=== PATIENT | male | born 1995 | race Two or more races ===

== ENCOUNTER 2018-02-17 19:05 | Emergency (ER) | payer SELFPAY ==
[2018-02-17] MEDS ORDERED: ALBUTEROL SULFATE 0.083% NEB 2.5 MG/3 ML AMPUL NEB ONE (20:06)
[2018-02-17] MEDS ORDERED: PREDNISONE 20 MG TABLET PO ONE (20:06)
--- NOTE | 2018-02-17 20:12 | ER Document Report ---
ED Respiratory Problem - General Chief Complaint: Cold Symptoms Stated Complaint: cough Time Seen by Provider: 02/17/18 19:57 Notes: Patient is a 23-year-old male with a history of asthma presenting to the ED today complaining of chest congestion, sore throat, coughing, and chest pains with breathing 1 week. Patient is presently out of his asthma medications. Patient is a smoker. No fever. TRAVEL OUTSIDE OF THE [place] IN LAST 30 DAYS: No - HPI Patient complains to provider of: Asthma, Cough Onset: Last week Initiating Event: URI Quality of pain: Achy Context: Hx asthma Short of Breath: Mild Chest pain/discomfort: Center, Worse with deep breaths Cough: Productive Sputum amount: Scant Sputum color: Green Sputum consistency: Mucoid Associated symptoms: Chest pain/discomfort, Congestion, Cough, Sinus pain/ pressure, Short of breath, Sore Throat - Related Data Allergies/Adverse Reactions: acetaminophen [From Tylenol] Allergy (Verified 02/17/18 19:06) Past Medical History - General Information source: Patient - Social History Smoking Status: Current Every Day Smoker Frequency of alcohol use: None Drug Abuse: None Lives with: Family Family History: Reviewed & Not Pertinent Patient has suicidal ideation: No Patient has homicidal ideation: No Pulmonary Medical History: Reports: Hx Asthma Renal/ Medical History: Denies: Hx Peritoneal Dialysis Skin Medical History: Reports Hx Eczema Psychiatric Medical History: Reports: Hx Anxiety, Hx Depression - Immunizations Immunizations up to date: Yes Hx Diphtheria, Pertussis, Tetanus Vaccination: Yes - last tetanus a few months ago Review of Systems - Review of Systems Constitutional: No symptoms reported EENT: No symptoms reported Cardiovascular: No symptoms reported Respiratory: See HPI Gastrointestinal: No symptoms reported Genitourinary: No symptoms reported Male Genitourinary: No symptoms reported Musculoskeletal: No symptoms reported Skin: No symptoms reported Hematologic/Lymphatic: No symptoms reported Neurological/Psychological: No symptoms reported Physical Exam - Vital signs Interpretation: Normal - General General appearance: Appears well, Alert In distress: None - HEENT Head: Normocephalic, Atraumatic Eyes: Normal Pupils: PERRL - Respiratory Respiratory status: No respiratory distress Chest status: Nontender Breath sounds: Nonproductive cough, Wheezing Chest palpation: Normal - Cardiovascular Rhythm: Regular Heart sounds: Normal auscultation Murmur: No - Abdominal Inspection: Normal Distension: No distension Bowel sounds: Normal Tenderness: Nontender Organomegaly: No organomegaly - Back Back: Normal, Nontender - Extremities General upper extremity: Normal inspection, Nontender, Normal color, Normal ROM , Normal temperature General lower extremity: Normal inspection, Nontender, Normal color, Normal ROM , Normal temperature, Normal weight bearing. No: Deyvi's sign - Neurological Neuro grossly intact: Yes Cognition: Normal Orientation: AAOx4 [place] Coma Scale Eye Opening: Spontaneous [place] Coma Scale Verbal: Oriented [place] Coma Scale Motor: Obeys Commands [place] Coma Scale Total: 15 Speech: Normal Motor strength normal: LUE, RUE, LLE, RLE Sensory: Normal - Psychological Associated symptoms: Normal affect, Normal mood - Skin Skin Temperature: Warm Skin Moisture: Dry Skin Color: Normal Course - Re-evaluation Re-evalutation: 02/17/18 20:36 History and physical are consistent with an upper respiratory infection with an asthma exacerbation. Chest x-ray is negative. Patient is improved after nebulizers and steroids. No signs of respiratory distress or sepsis. Home care , primary care follow-up and ED return precautions discussed with patient. Patient is agreeable to plan and stable for discharge Discharge - Discharge Clinical Impression: Acute left otitis media URI (upper respiratory infection) Qualifiers: URI type: unspecified viral URI Qualified Code(s): J06.9 - Acute upper respiratory infection, unspecified Asthma exacerbation Qualifiers: Asthma severity: moderate Asthma persistence: persistent Qualified Code(s): J45.41 - Moderate persistent asthma with (acute) exacerbation Condition: Stable Instructions: Upper Respiratory Illness ([facility]), Asthma ([facility]), Steroid Medication , Inhaled Bronchodilators ([facility]), Otitis Media ([facility]), Antibiotic Therapy ([facility]) Additional Instructions: Please take your medications as prescribed Use inhaler as needed you may take an OTC decongestant in addition to prescribed medications Follow-up with your primary care if symptoms persist or worsen Prescriptions: Benzonatate [Tessalon Perles 100 mg Capsule] 200 mg PO Q8HP PRN #40 capsule PRN Reason: Albuterol Sulfate [Proair HFA Inhalation Aerosol 8.5 gm MDI] 2 puff IH Q4H PRN # 1 mdi PRN Reason: Amoxicillin 500 mg PO TID #21 tablet Prednisone 20 mg PO BID #16 tablet
--- NOTE | 2018-02-17 20:47 | RADIOLOGY REPORT (SQ) ---
EXAM DESCRIPTION: CHEST 2 VIEWS COMPLETED DATE/TIME: 02/17/2018 8:31 pm REASON FOR STUDY: cough COMPARISON: 11/27/2015 EXAM PARAMETERS: NUMBER OF VIEWS: two views TECHNIQUE: Digital Frontal and Lateral radiographic views of the chest acquired. RADIATION DOSE: NA LIMITATIONS: none FINDINGS: LUNGS AND PLEURA: No opacities, masses or pneumothorax. No pleural effusion. MEDIASTINUM AND HILAR STRUCTURES: No masses or contour abnormalities. HEART AND VASCULAR STRUCTURES: Heart normal size. No evidence for failure. BONES: No acute findings. HARDWARE: None in the chest. OTHER: No other significant finding. IMPRESSION: NO ACUTE RADIOGRAPHIC FINDING IN THE CHEST. TECHNICAL DOCUMENTATION: JOB ID: [id number] [employer]- All Rights Reserved Reading location - IP/workstation name: [email or web address]
[2018-02-17] MEDS ORDERED: IPRATROPIUM/ALBUTEROL 0.5-2.5 MG/3 ML AMPUL NEB ONE (20:48)
[2018-02-17 21:24] VITALS: BP 138/77
== END 2018-02-17 21:24 | disposition home or self-care (01) ==
LOC: ER 19:05
DX: H66.92 Otitis media, unspecified, left ear (principal); J06.9 Acute upper respiratory infection, unspecified; J45.41 Moderate persistent asthma with (acute) exacerbation
CPT/HCPCS: 94640 ×2; 99283; 71046; J7512; J7620

== ENCOUNTER 2018-03-19 09:07 | Emergency (ER) | payer OTHER ==
[2018-03-19] MEDS ORDERED: FENTANYL CITRATE INJ/PF 100 MCG/2 ML AMPUL IM ONE (09:25)
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
[2018-03-19 10:02] LABS: ABSOLUTE BASOPHILS # (AUTO) 0.1 10^3/uL (0.0-0.2); ABSOLUTE EOSINOPHILS # (AUTO) 0.3 10^3/uL (0.0-0.6); ABSOLUTE LYMPHOCYTES (AUTO) 2.1 10^3/uL (0.5-4.7); ABSOLUTE MONOCYTES (AUTO) 0.9 10^3/uL (0.1-1.4); BASOPHILS % (AUTO) 0.7 % (0-2); EOSINOPHILS % (AUTO) 3.6 % (0-6); HEMATOCRIT 47.9 % (37.9-51.0); HEMOGLOBIN 16.7 g/dL (13.5-17.0); MEAN CORPUSCULAR HEMOGLOBIN 30.8 pg (27.0-33.4); MEAN CORPUSCULAR VOLUME 88 fl (80-97); MONOCYTES % (AUTO) 9.7 % (3-13); PLATELET COUNT 270 10^3/uL (150-450); RED BLOOD COUNT 5.43 10^6/uL (4.35-5.55); TOTAL CELLS COUNTED % (AUTO) 100 %; WHITE BLOOD COUNT 9.4 10^3/uL (4.0-10.5)
[2018-03-19 10:25] LABS: ALANINE AMINOTRANSFERASE 148 U/L (21-72); ALBUMIN 4.5 g/dL (3.5-5.0); ALKALINE PHOSPHATASE 83 U/L (38-126); ANION GAP 14 (5-19); ASPARTATE AMINO TRANSFERASE 116 U/L (17-59); BILIRUBIN,DIRECT 0.4 mg/dL (0.0-0.4); BILIRUBIN,TOTAL 1.2 mg/dL (0.2-1.3); BLOOD UREA NITROGEN 14 mg/dL (7-20); CALCIUM 10.2 mg/dL (8.4-10.2); CARBON DIOXIDE 29 mmol/L (22-30); CHLORIDE 101 mmol/L (98-107); GLUCOSE 73 mg/dL (75-110); LIPASE 22.9 U/L (23-300); POTASSIUM 4.2 mmol/L (3.6-5.0); SODIUM 143.8 mmol/L (137-145)
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
[2018-03-19 12:32] VITALS: BP 138/75
[2018-03-19 13:03] LABS: URINE AMPHETAMINES SCREEN NEGATIVE; URINE BARBITURATES SCREEN NEGATIVE; URINE BENZODIAZEPINES SCREEN UNCONFIRMED POSITIVE; URINE COCAINE SCREEN NEGATIVE; URINE MARIJUANA (THC) SCREEN NEGATIVE; URINE METHADONE SCREEN NEGATIVE; URINE PHENCYCLIDINE SCREEN NEGATIVE
== END 2018-03-19 12:35 | disposition home or self-care (01) ==
LOC: ER 09:07
DX: M54.9 Dorsalgia, unspecified (principal); M54.2 Cervicalgia; M25.511 Pain in right shoulder; M79.601 Pain in right arm; M79.641 Pain in right hand; M25.551 Pain in right hip; R07.89 Other chest pain; V03.10XA Pedestrian on foot injured in collision with car, pick-up truck or van in traffic accident, initial encounter; Y92.410 Unspecified street and highway as the place of occurrence of the external cause; F17.210 Nicotine dependence, cigarettes, uncomplicated; Z88.6 Allergy status to analgesic agent
CPT/HCPCS: 99284; 96372; 36415; 83690; 85025; 80053; 80307; 73090; 73120; 73502; 73060; 72110; 71101; 73030; 72070; 70450; 70486; 71260; 72125; 74177; L0120; J3010

== ENCOUNTER 2018-06-17 09:36 | Emergency (ER) | payer OTHER ==
[2018-06-17 09:44] VITALS: BP 137/75
[2018-06-17] MEDS ORDERED: IPRATROPIUM/ALBUTEROL 0.5-2.5 MG/3 ML AMPUL NEB ONE (09:52)
[2018-06-17] MEDS ORDERED: PREDNISONE 20 MG TABLET PO ONE (09:54)
--- NOTE | 2018-06-17 09:59 | ER Document Report ---
ED Respiratory Problem - General Chief Complaint: Breathing Difficulty Stated Complaint: DIFFICULTY BREATHING, SORE THROAT Time Seen by Provider: 06/17/18 09:52 Mode of Arrival: Ambulatory Information source: Patient Notes: Chief complaint: Cough History of complain:( obtained from----patient) 23 years old male presents today with cough and wheezing for the last 2 days with runny nose sore throat. Having chest tightness and pain when wheezing. And coughing also. Denies any fever chills. Denies any headache. Denies any nausea vomiting. He smokes about 10 cigarettes a day. Onset: As above Duration: 2 days Severity: Mild to moderate Quality: Not applicable Context: Smoking Exacerbating factor and relieving factors: Exertion last year to restart show no problem REVIEW OF SYSTEMS: CONSTITUTIONAL : Denies fever, chills, or sweats. Denies recent illness. EENT: Denies eye, ear, throat, or mouth pain or symptoms. Denies nasal or sinus congestion or discharge. Denies throat, tongue, or mouth swelling or difficulty swallowing. CARDIOVASCULAR: Denies chest pain. Denies palpitations or racing or irregular heart beat. Denies ankle edema. RESPIRATORY: Denies cough, cold, or chest congestion. Denies shortness of breath, difficulty breathing, or wheezing. GASTROINTESTINAL: Denies distention. Denies nausea, vomiting, or diarrhea. Denies blood in vomitus, stools, or per rectum. Denies black, tarry stools. Denies constipation. GENITOURINARY: Denies difficulty urinating, painful urination, burning, frequency, blood in urine, or discharge. FEMALE GENITOURINARY: Denies vaginal bleeding, heavy or abnormal periods, irregular periods. Denies vaginal discharge or odor. MUSCULOSKELETAL: Denies back or neck pain or stiffness. Denies joint pain or swelling. SKIN: Denies rash, lesions or sores. HEMATOLOGIC : Denies easy bruising or bleeding. LYMPHATIC: Denies swollen, enlarged glands. NEUROLOGICAL: Denies confusion or altered mental status. Denies passing out or loss of consciousness. Denies dizziness or lightheadedness. Denies headache. Denies weakness or paralysis or loss of use of either side. Denies problems with gait or speech. Denies sensory loss, numbness, or tingling. Denies seizures. PSYCHIATRIC: Denies anxiety or stress. Denies depression, suicidal ideation, or homicidal ideation. ALL OTHER SYSTEMS REVIEWED AND NEGATIVE. PHYSICAL EXAMINATION: GENERAL: Well-appearing, well-nourished and in no acute distress. HEAD: Atraumatic, normocephalic. EYES: Pupils equal round and reactive to light, extraocular movements intact, conjunctiva are normal. ENT: Nares patent, oropharynx erythematous without exudates. Moist mucous membranes. NECK: Normal range of motion, supple without lymphadenopathy LUNGS: Breath sounds clear to auscultation bilaterally and equal. Bilateral expiratory wheezing moderate HEART: Regular rate and rhythm without murmurs ABDOMEN: Soft, nontender, nondistended abdomen. No guarding, no rebound. No masses appreciated. Examination of genitals-deferred Musculoskeletal: Normal range of motion, no pitting or edema. No cyanosis. NEUROLOGICAL: Cranial nerves grossly intact. Normal speech, normal gait. Normal sensory, motor exams PSYCH: Normal mood, normal affect. SKIN: Warm, Dry, normal turgor, no rashes or lesions noted. Dictation was performed using [employer] voice recognition software TRAVEL OUTSIDE OF THE [place] IN LAST 30 DAYS: No - HPI Notes: Dictated - Related Data Allergies/Adverse Reactions: acetaminophen [From Tylenol] Allergy (Verified 06/17/18 09:39) Past Medical History - Social History Smoking Status: Current Every Day Smoker Cigarette use (# per day): Yes - 10 Chew tobacco use (# tins/day): No Smoking Education Provided: Yes Frequency of alcohol use: Rare Drug Abuse: None Lives with: Family Family History: Reviewed & Not Pertinent Pulmonary Medical History: Reports: Hx Asthma Renal/ Medical History: Denies: Hx Peritoneal Dialysis Skin Medical History: Reports Hx Eczema Psychiatric Medical History: Reports: Hx Anxiety, Hx Depression - Immunizations Immunizations up to date: Yes Hx Diphtheria, Pertussis, Tetanus Vaccination: Yes - last tetanus a few months ago Review of Systems - Review of Systems Notes: Dictated Physical Exam - Vital signs Vitals: Temp Pulse Resp BP Pulse Ox 98.7 F 90 16 137/75 H 95 06/17/18 09:42 06/17/18 09:42 06/17/18 09:42 06/17/18 09:42 06/17/18 09:42 - Notes Notes: Dictated Course - Re-evaluation Re-evalutation: 06/17/18 09:57 Given bronchodilator treatment with DuoNeb and prednisone 60 mg p.o. - Vital Signs Vital signs: Temp Pulse Resp BP Pulse Ox 98.7 F 90 16 137/75 H 95 06/17/18 09:42 06/17/18 09:42 06/17/18 09:42 06/17/18 09:42 06/17/18 09:42 Discharge - Discharge Clinical Impression: Acute exacerbation of asthma with allergic rhinitis Pharyngitis Qualifiers: Pharyngitis/tonsillitis etiology: unspecified etiology Qualified Code(s): J02.9 - Acute pharyngitis, unspecified Condition: Fair Disposition: HOME, SELF-CARE Instructions: Corticosteroid Inhaler ([facility]), Stop Smoking ([facility]), Asthma ([facility]) Prescriptions: Albuterol Sulfate [Proair HFA] 1 - 2 puff IH Q4 PRN #1 inhaler PRN Reason: Amoxicillin 1 tab PO TID #30 tab Fluticasone Propionate [Flovent HFA 220 mcg MDI] 1 puff IH BID #1 mdi Prednisone 10 mg PO ASDIR PRN #1 tab.ds.pk PRN Reason:
[2018-06-17] MEDS ORDERED: ALBUTEROL SULFATE HFA (90 MCG/PUFF) 8 GM MDI (1 MDI/ER DISP) IH ONE (10:24)
[2018-06-17] MEDS ORDERED: FLUTICASONE PROPIONATE HFA 110 MCG/PUFF 12 GM MDI IH ONE (10:25)
== END 2018-06-17 10:45 | disposition home or self-care (01) ==
LOC: ER 09:36
DX: J45.901 Unspecified asthma with (acute) exacerbation (principal); R05 Cough; J02.9 Acute pharyngitis, unspecified; R07.89 Other chest pain; F17.210 Nicotine dependence, cigarettes, uncomplicated; Z88.6 Allergy status to analgesic agent
CPT/HCPCS: 94640; 99284; J7512; J3490 ×2; J7620

== ENCOUNTER 2018-08-28 15:49 | Emergency (ER) | payer SELFPAY ==
[2018-08-28] MEDS ORDERED: ONDANSETRON HCL INJ/PF 4 MG/2 ML SDV IV ONE (16:14)
[2018-08-28] MEDS ORDERED: MORPHINE SULFATE 10 MG/ML INJ IV ONE (16:14)
--- NOTE | 2018-08-28 16:20 | ER Document Report ---
ED Fall - General Chief Complaint: Fall Injury Stated Complaint: FALL/INJURY TO HEAD/FINGERS Time Seen by Provider: 08/28/18 16:14 Mode of Arrival: Stretcher Information source: Patient Notes: This is a 23-year-old male with no medical problems who fell off a roof. He is a roofer assistant. He states he scraped his fingers on the gutters trying to hold onto the house. He states he landed on his buttocks. He does report loss of consciousness. Friend said he was dazed and they helped him to the car and brought him immediately to the hospital. Patient complains of upper back and lower back pain. TRAVEL OUTSIDE OF THE [place] IN LAST 30 DAYS: No - HPI Occurred: Just prior to arrival Where: Outdoors Context: Slipped Associated symptoms: Lost consciousness. denies: Seizure, Difficulty breathing Location of injury/pain: Back, Buttocks, Hand Quality of pain: Dull Pain Level: 3 - Related data Allergies/Adverse Reactions: acetaminophen [From Tylenol] Allergy (Verified 08/28/18 15:50) Past Medical History - General Information source: Patient - Social History Smoking Status: Never Smoker Cigarette use (# per day): No Chew tobacco use (# tins/day): No Frequency of alcohol use: None Drug Abuse: None Lives with: Family Family History: Reviewed & Not Pertinent Patient has suicidal ideation: No Patient has homicidal ideation: No Pulmonary Medical History: Reports: Hx Asthma Renal/ Medical History: Denies: Hx Peritoneal Dialysis Skin Medical History: Reports Hx Eczema Psychiatric Medical History: Reports: Hx Anxiety, Hx Depression Surgical Hx: Negative - Immunizations Immunizations up to date: Yes Hx Diphtheria, Pertussis, Tetanus Vaccination: Yes - last tetanus a few months ago Review of Systems - Review of Systems Constitutional: denies: Chills, Fever EENT: No symptoms reported Cardiovascular: No symptoms reported Respiratory: No symptoms reported Gastrointestinal: No symptoms reported Genitourinary: No symptoms reported Male Genitourinary: No symptoms reported Musculoskeletal: See HPI Skin: No symptoms reported Hematologic/Lymphatic: No symptoms reported Neurological/Psychological: No symptoms reported Physical Exam - Vital signs Vitals: Temp Pulse Resp BP Pulse Ox 98.4 F 81 18 129/80 H 97 08/28/18 16:04 08/28/18 16:04 08/28/18 16:04 08/28/18 16:04 08/28/18 16:04 Notes: PHYSICAL EXAM: GENERAL: Patient on stretcher with collar. HEAD: Atraumatic, normocephalic. EYES: Pupils equal round and reactive to light, extraocular movements intact, sclera anicteric, conjunctiva are normal. No periorbital eccymosis. ENT: TMs normal, no hemotympanum, nares patent, oropharynx clear. No septal hematoma. No post-auricular eccymosis. NECK: No obvoius lesion. No cervical spine tenderness. Cervical collar placed back on. LUNGS: Breath sounds clear to auscultation bilaterally and equal. No wheezes rales or rhonchi.No crepitus or flail segments. HEART: Regular rate and rhythm without murmurs, rubs or gallops. ABDOMEN: Soft, nontender, normoactive bowel sounds. No guarding, no rebound. No masses appreciated. PELVIS: Stable EXTREMITIES: Normal range of motion, no pitting or edema. No clubbing or cyanosis. She has absolutely no tenderness with palpation over the calcaneal region bilaterally. No tenderness over the ankle or knee joints. NEUROLOGICAL: GCS 15, moving all extremities. SKIN: Warm, Dry, normal turgor, no rashes or lesions noted. LOG ROLL: She does have mild tenderness to the upper thoracic region. There is no gross crepitus or skin changes or step-offs. Patient does have mild tenderness in the lower thoracic and lumbar area without any obvious step-offs or crepitus. Rectal: Good tone Course - Vital Signs Vital signs: Temp Pulse Resp BP Pulse Ox 98.1 F 81 14 115/74 98 08/28/18 19:50 08/28/18 16:04 08/28/18 19:30 08/28/18 19:31 08/28/18 19:31 - Laboratory Result Diagrams: 08/28/18 16:17 08/28/18 16:17 Laboratory results interpreted by me: 08/28/18 08/28/18 16:17 16:17 WBC 13.0 H RDW 14.2 H Seg Neutrophils % 78.3 H Lymphocytes % 12.5 L Absolute Neutrophils 10.2 H Glucose 145 H - Diagnostic Test Radiology reviewed: Image reviewed, Reports reviewed - CT of the head, neck, chest, abdomen and pelvis no acute injury. Procedures - Laceration/Wound Repair Left Hand Time completed: 23:29 Wound length (cm): 2 Wound's Depth, Shape: Irregular Laceration pre-procedure: Chloraprep applied, Shur-Clens applied Anesthetic type: 1% Lidocaine Volume Anesthetic (mLs): 4 Wound Debrided: Minimal Wound Repaired With: Steri-strips, Dermabond Post-procedure NV exam normal: Yes Complications: No Notes: 08/28/18 23:30 Finger blocks to the left digit #2 and 3. And was scrubbed with a surgical scrub brush, dirt removed from nails. Wounds on the second and third fingertips were inspected and irrigated. They were then approximated using Steri-Strips and Dermabond and then wrapped. Right Hand Time completed: 23:31 Wound length (cm): 1 Wound's Depth, Shape: Irregular Laceration pre-procedure: Betadine prep applied, Chloraprep applied Wound explored: Clean Irrigated w/ Saline (mLs): 250 Wound Repaired With: Steri-strips, Dermabond Post-procedure NV exam normal: Yes Complications: No Notes: 08/28/18 23:31 The hand was scrubbed with a surgical scrub brush. Laceration to the right third digit was explored. Then approximated with Steri-Strips, Dermabond. The wound was then wrapped. Discharge - Discharge Clinical Impression: Concussion, Upper back pain acute, Acute low back pain, Multiple abrasions to the fingertips, s/p Fall Clinical Impression: (Ruled Out): That is post fall Condition: Stable Disposition: HOME, SELF-CARE Instructions: Concussion ([facility]), Laceration Care ([facility]) Additional Instructions: As we discussed, the CT of the head, neck, chest, abdomen and pelvis look good. There was no obvious bony injuries. Your tetanus was up-to-date (by your own history). Your fingers were scrubbed and the lacerations repaired. I recommend you rest, drink plenty of fluids, advance diet slowly. You can take ibuprofen for pain. Oxycodone for pain not relieved by ibuprofen. Return to the emergency room for worsening headache, shortness of breath, abdominal pain or any complaints or getting worse. The pain medicine you're taking prescribed as a narcotic. There are several important things you should know about this medicine: 1. Taking narcotics for too long can lead to physical and mental dependence. Take this medicine only if really needed and in the lowest quantity to achieve pain relief. 2. Do not drink alcohol while on this medicine. Alcohol interacts with narcotics and the combination can be dangerous. 3. Do not drive or operate machinery while on this medicine. 4. Narcotics do cause constipation, so drink plenty of fluids and daily stool softeners. Keep the fingertips dry as much as you can. The Steri-Strips will eventually fall off. The fingertip wounds will heal. Return to the ER for any redness, swelling any concerns for infection. Prescriptions: Oxycodone HCl 5 mg PO Q6HP PRN #14 capsule PRN Reason:
[2018-08-28 16:36] LABS: ABSOLUTE BASOPHILS # (AUTO) 0.1 10^3/uL (0.0-0.2); ABSOLUTE EOSINOPHILS # (AUTO) 0.2 10^3/uL (0.0-0.6); ABSOLUTE LYMPHOCYTES (AUTO) 1.6 10^3/uL (0.5-4.7); ABSOLUTE MONOCYTES (AUTO) 0.9 10^3/uL (0.1-1.4); ABSOLUTE NEUT (AUTO) 10.2 10^3/uL (1.7-8.2); BASOPHILS % (AUTO) 0.5 % (0-2); EOSINOPHILS % (AUTO) 1.8 % (0-6); HEMATOCRIT 46.6 % (37.9-51.0); HEMOGLOBIN 16.1 g/dL (13.5-17.0); LYMPHOCYTES % (AUTO) 12.5 % (13-45); MEAN CORPUSCULAR HEMOGLOBIN 29.8 pg (27.0-33.4); MEAN CORPUSCULAR HGB CONC 34.6 g/dL (32.0-36.0); MEAN CORPUSCULAR VOLUME 86 fl (80-97); MONOCYTES % (AUTO) 6.9 % (3-13); PLATELET COUNT 187 10^3/uL (150-450); RED BLOOD COUNT 5.41 10^6/uL (4.35-5.55); RED CELL DISTRIBUTION WIDTH 14.2 % (11.5-14.0); SEGMENTED NEUTROPHILS % (AUTO) 78.3 % (42-78); TOTAL CELLS COUNTED % (AUTO) 100 %
[2018-08-28 16:46] LABS: ALANINE AMINOTRANSFERASE 45 U/L (21-72); ALBUMIN 4.4 g/dL (3.5-5.0); ALKALINE PHOSPHATASE 65 U/L (38-126); ANION GAP 14 (5-19); ASPARTATE AMINO TRANSFERASE 43 U/L (17-59); BILIRUBIN,DIRECT 0.1 mg/dL (0.0-0.4); BILIRUBIN,TOTAL 0.9 mg/dL (0.2-1.3); BLOOD UREA NITROGEN 14 mg/dL (7-20); CALCIUM 9.9 mg/dL (8.4-10.2); CARBON DIOXIDE 28 mmol/L (22-30); CHLORIDE 102 mmol/L (98-107); GLUCOSE 145 mg/dL (75-110); TOTAL PROTEIN 7.4 g/dL (6.3-8.2)
--- NOTE | 2018-08-28 17:02 | RADIOLOGY REPORT (SQ) ---
EXAM DESCRIPTION: CT HEAD WITHOUT COMPLETED DATE/TIME: 08/28/2018 4:52 pm REASON FOR STUDY: fall loc COMPARISON: 03/19/2018 TECHNIQUE: Axial images acquired through the brain without intravenous contrast. Images reviewed wi th bone, brain and subdural windows. Additional sagittal and coronal reconstructions were generated. Images stored on PACS. All CT scanners at this facility use dose modulation, iterative reconstruction, and/or weight based d osing when appropriate to reduce radiation dose to as low as reasonably achievable (ALARA). [facility]: Dose Right [facility]: CareDose [facility]: Dose Right [facility]: Teradose 4D [facility]: Smart [employer] RADIATION DOSE: CT Rad equipment meets quality standard of care and radiation dose reduction techniq ues were employed. CTDIvol: 53.2 mGy. DLP: 1044 mGy-cm. mGy. LIMITATIONS: None. FINDINGS: VENTRICLES: Normal size and contour. CEREBRUM: No masses. No hemorrhage. No midline shift. No evidence for acute infarction. Normal gra y/white matter differentiation. No areas of low density in the white matter. CEREBELLUM: No masses. No hemorrhage. No alteration of density. No evidence for acute infarction. EXTRAAXIAL SPACES: No fluid collections. No masses. ORBITS AND GLOBE: No intra- or extraconal masses. Normal contour of globe without masses. CALVARIUM: No fracture. PARANASAL SINUSES: No fluid or mucosal thickening. SOFT TISSUES: No mass or hematoma. OTHER: No other significant finding. IMPRESSION: NORMAL BRAIN CT WITHOUT CONTRAST. EVIDENCE OF ACUTE STROKE: NO. COMMENT: Quality ID # [id number]: Final reports with documentation of one or more dose reduction techniques (e.g., Automated exposure control, adjustment of the mA and/or kV according to patient size, use of iterative reconstruction technique) TECHNICAL DOCUMENTATION: JOB ID: [id number] [employer]- All Rights Reserved Reading location - IP/workstation name: [email or web address]
--- NOTE | 2018-08-28 17:03 | RADIOLOGY REPORT (SQ) ---
EXAM DESCRIPTION: CT CERVICAL SPINE WITHOUT COMPLETED DATE/TIME: 08/28/2018 4:52 pm REASON FOR STUDY: fall-loc COMPARISON: 03/19/2018 TECHNIQUE: Axial images acquired through the cervical spine without intravenous contrast. Images re viewed with lung, soft tissue and bone windows. Reconstructed coronal and sagittal MPR images review ed. Images stored on PACS. All CT scanners at this facility use dose modulation, iterative reconstruction, and/or weight based d osing when appropriate to reduce radiation dose to as low as reasonably achievable (ALARA). [facility]: Dose Right [facility]: CareDose [facility]: Dose Right [facility]: Teradose 4D [facility]: Smart [employer] RADIATION DOSE: CT Rad equipment meets quality standard of care and radiation dose reduction techniq ues were employed. CTDIvol: 18.6 mGy. DLP: 498 mGy-cm. mGy. LIMITATIONS: None. FINDINGS: ALIGNMENT: Anatomic. MINERALIZATION: Normal. VERTEBRAL BODIES: No fractures or dislocation. DISCS: No significant disc disease. FACETS, LATERAL MASSES, POSTERIOR ELEMENTS: No fractures. No dislocation. No acute findings. HARDWARE: None in the spine. VISUALIZED RIBS: No fractures. LUNG APICES AND SOFT TISSUES: No significant or acute findings. OTHER: No other significant finding. IMPRESSION: NO ACUTE OR SIGNIFICANT FINDINGS IN THE CERVICAL SPINE. TECHNICAL DOCUMENTATION: JOB ID: [id number] Quality ID # [id number]: Final reports with documentation of one or more dose reduction techniques (e.g., Au tomated exposure control, adjustment of the mA and/or kV according to patient size, use of iterative reconstruction technique) 2010 [email or web address]- All Rights Reserved Reading location - IP/workstation name: [email or web address]
--- NOTE | 2018-08-28 17:09 | RADIOLOGY REPORT (SQ) ---
EXAM DESCRIPTION: CT CHEST WITH; CT ABD/PELVIS WITH IV ONLY COMPLETED DATE/TIME: 08/28/2018 4:52 pm REASON FOR STUDY: trauma, fall; abd pain CONTRAST TYPE AND DOSE: contrast/concentration: Isovue 350.00 mg/ml; Total Contrast Delivered: 73.0 ml; Total Saline Delivered: 66.0 ml RENAL FUNCTION: GFR > 60. COMPARISON: None. TECHNIQUE: CT scan of the chest performed using helical scanning technique with dynamic intravenous contrast injection. Images reviewed with lung, soft tissue and bone windows. Reconstructed coronal a nd sagittal MPR images reviewed. All images stored on PACS. All CT scanners at this facility use dose modulation, iterative reconstruction, and/or weight based d osing when appropriate to reduce radiation dose to as low as reasonably achievable (ALARA). [facility]: Dose Right [facility]: CareDose [facility]: Dose Right [facility]: Teradose 4D [facility]: Citilog RADIATION DOSE: CT Rad equipment meets quality standard of care and radiation dose reduction techniq ues were employed. CTDIvol: 5.3 - 6.2 mGy. DLP: 684 mGy-cm.. LIMITATIONS: None. FINDINGS: AXILLAE: No adenopathy. CHEST WALL: No masses. No subcutaneous air. LUNGS: No nodules or masses. No pneumothorax. No infiltrates. PLEURA: No effusions. No calcifications. THYROID: No masses or significant asymmetry. HILAR AND MEDIASTINAL STRUCTURES: No identified masses or abnormal nodes. AORTA AND GREAT VESSELS: No aneurysm. No dissection. PULMONARY ARTERIES: No identified pulmonary emboli. Study not optimized for the pulmonary arteries. HEART: No pericardial effusion. HARDWARE AND LIFELINES: None. BONES: No significant finding. OTHER: No other significant finding. IMPRESSION: No CT evidence of acute traumatic injury to the chest. COMPARISON: None. RADIATION DOSE: CT Rad equipment meets quality standard of care and radiation dose reduction techniq ues were employed. CTDIvol: 5.3 - 6.2 mGy. DLP: 684 mGy-cm.mGy. TECHNIQUE: CT scan of the abdomen and pelvis performed with intravenous and oral contrast using long cristina scanning technique with dynamic intravenous contrast injection. Images reviewed with lung, soft tissue and bone windows. Reconstructed coronal and sagittal MPR images reviewed. Delayed images for evaluation of the urinary system also acquired and evaluated. All images stored on PACS. All CT scanners at this facility use dose modulation, iterative reconstruction, and/or weight based d osing when appropriate to reduce radiation dose to as low as reasonably achievable (ALARA). [facility]: Dose Right [facility]: SureCare [facility]: Dose Right [facility]: Teradose 4D [facility]: Citilog FINDINGS: LIVER: Normal size. No masses. No dilated ducts. SPLEEN: Normal size. No focal lesions. PANCREAS: No masses. No significant calcifications. No adjacent inflammation or peripancreatic flui d collections. Pancreatic duct not dilated. GALLBLADDER: No identified stones by CT criteria. No inflammatory changes to suggest cholecystitis. ADRENAL GLANDS: No significant masses or asymmetry. RIGHT KIDNEY AND URETER: No solid masses. No significant calcification. No hydronephrosis or hydroure ter. LEFT KIDNEY AND URETER: No solid masses. No significant calcification. No hydronephrosis or hydrouret er. AORTA AND VESSELS: No aneurysm. No dissection. Renal arteries, SMA, celiac without stenosis. RETROPERITONEUM: No retroperitoneal adenopathy, hemorrhage or masses. LARGE AND SMALL BOWEL: No dilatation. No masses. No wall thickening. APPENDIX: Normal. ABDOMINAL WALL: No hernia or masses. PERITONEAL CAVITY: No free air. No free fluid. No peritoneal implants or masses. PELVIS: No mass or free fluid. Normal bladder. BONES: No significant or acute findings. OTHER: No other significant finding. IMPRESSION: No CT evidence of acute traumatic injury to the abdomen or pelvis. TECHNICAL DOCUMENTATION: JOB ID: [id number] Quality ID # [id number]: Final reports with documentation of one or more dose reduction techniques (e.g., Au tomated exposure control, adjustment of the mA and/or kV according to patient size, use of iterative reconstruction technique) 2010 [employer]- All Rights Reserved Reading location - IP/workstation name: [email or web address]
--- NOTE | 2018-08-28 17:10 | RADIOLOGY REPORT (SQ) ---
EXAM DESCRIPTION: CT CHEST WITH; CT ABD/PELVIS WITH IV ONLY COMPLETED DATE/TIME: 08/28/2018 4:52 pm REASON FOR STUDY: trauma, fall; abd pain CONTRAST TYPE AND DOSE: contrast/concentration: Isovue 350.00 mg/ml; Total Contrast Delivered: 73.0 ml; Total Saline Delivered: 66.0 ml RENAL FUNCTION: GFR > 60. COMPARISON: None. TECHNIQUE: CT scan of the chest performed using helical scanning technique with dynamic intravenous contrast injection. Images reviewed with lung, soft tissue and bone windows. Reconstructed coronal a nd sagittal MPR images reviewed. All images stored on PACS. All CT scanners at this facility use dose modulation, iterative reconstruction, and/or weight based d osing when appropriate to reduce radiation dose to as low as reasonably achievable (ALARA). [facility]: Dose Right [facility]: CareDose [facility]: Dose Right [facility]: Teradose 4D [facility]: [facility] RADIATION DOSE: CT Rad equipment meets quality standard of care and radiation dose reduction techniq ues were employed. CTDIvol: 5.3 - 6.2 mGy. DLP: 684 mGy-cm.. LIMITATIONS: None. FINDINGS: AXILLAE: No adenopathy. CHEST WALL: No masses. No subcutaneous air. LUNGS: No nodules or masses. No pneumothorax. No infiltrates. PLEURA: No effusions. No calcifications. THYROID: No masses or significant asymmetry. HILAR AND MEDIASTINAL STRUCTURES: No identified masses or abnormal nodes. AORTA AND GREAT VESSELS: No aneurysm. No dissection. PULMONARY ARTERIES: No identified pulmonary emboli. Study not optimized for the pulmonary arteries. HEART: No pericardial effusion. HARDWARE AND LIFELINES: None. BONES: No significant finding. OTHER: No other significant finding. IMPRESSION: No CT evidence of acute traumatic injury to the chest. COMPARISON: None. RADIATION DOSE: CT Rad equipment meets quality standard of care and radiation dose reduction techniq ues were employed. CTDIvol: 5.3 - 6.2 mGy. DLP: 684 mGy-cm.mGy. TECHNIQUE: CT scan of the abdomen and pelvis performed with intravenous and oral contrast using long cristina scanning technique with dynamic intravenous contrast injection. Images reviewed with lung, soft tissue and bone windows. Reconstructed coronal and sagittal MPR images reviewed. Delayed images for evaluation of the urinary system also acquired and evaluated. All images stored on PACS. All CT scanners at this facility use dose modulation, iterative reconstruction, and/or weight based d osing when appropriate to reduce radiation dose to as low as reasonably achievable (ALARA). [facility]: Dose Right [facility]: SureCare [facility]: Dose Right [facility]: Teradose 4D [facility]: [facility] FINDINGS: LIVER: Normal size. No masses. No dilated ducts. SPLEEN: Normal size. No focal lesions. PANCREAS: No masses. No significant calcifications. No adjacent inflammation or peripancreatic flui d collections. Pancreatic duct not dilated. GALLBLADDER: No identified stones by CT criteria. No inflammatory changes to suggest cholecystitis. ADRENAL GLANDS: No significant masses or asymmetry. RIGHT KIDNEY AND URETER: No solid masses. No significant calcification. No hydronephrosis or hydroure ter. LEFT KIDNEY AND URETER: No solid masses. No significant calcification. No hydronephrosis or hydrouret er. AORTA AND VESSELS: No aneurysm. No dissection. Renal arteries, SMA, celiac without stenosis. RETROPERITONEUM: No retroperitoneal adenopathy, hemorrhage or masses. LARGE AND SMALL BOWEL: No dilatation. No masses. No wall thickening. APPENDIX: Normal. ABDOMINAL WALL: No hernia or masses. PERITONEAL CAVITY: No free air. No free fluid. No peritoneal implants or masses. PELVIS: No mass or free fluid. Normal bladder. BONES: No significant or acute findings. OTHER: No other significant finding. IMPRESSION: No CT evidence of acute traumatic injury to the abdomen or pelvis. TECHNICAL DOCUMENTATION: JOB ID: [id number] Quality ID # [id number]: Final reports with documentation of one or more dose reduction techniques (e.g., Au tomated exposure control, adjustment of the mA and/or kV according to patient size, use of iterative reconstruction technique) 2010 [employer]- All Rights Reserved Reading location - IP/workstation name: [email or web address]
[2018-08-28] MEDS ORDERED: LIDOCAINE 2% INJ (20 MG/ML) 20 ML MDV INJ ONE (18:32)
[2018-08-28 20:25] VITALS: BP 115/74
== END 2018-08-28 19:50 | disposition home or self-care (01) ==
LOC: ER 15:49
DX: S06.0X9A Concussion with loss of consciousness of unspecified duration, initial encounter (principal); S61.211A Laceration without foreign body of left index finger without damage to nail, initial encounter; S61.213A Laceration without foreign body of left middle finger without damage to nail, initial encounter; M54.89 Other dorsalgia; M54.5 Low back pain; W13.2XXA Fall from, out of or through roof, initial encounter; Y92.008 Other place in unspecified non-institutional (private) residence as the place of occurrence of the external cause; J45.909 Unspecified asthma, uncomplicated; Z88.6 Allergy status to analgesic agent
CPT/HCPCS: 99284; 96374; 96375; 36415; 85025; 80053; 70450; 71260; 72125; 74177; 12002; L0120; J3490; J2270; J2405

== ENCOUNTER 2019-08-24 02:39 | Emergency (ER) | payer SELFPAY ==
[2019-08-24] MEDS ORDERED: NORMAL SALINE 1000 ML 1,000 ML IV ONE (07:08)
[2019-08-24 07:55] LABS: ABSOLUTE BASOPHILS # (AUTO) 0.1 10^3/uL (0.0-0.2); ABSOLUTE EOSINOPHILS # (AUTO) 0.4 10^3/uL (0.0-0.6); ABSOLUTE LYMPHOCYTES (AUTO) 2.1 10^3/uL (0.5-4.7); ABSOLUTE MONOCYTES (AUTO) 0.7 10^3/uL (0.1-1.4); ABSOLUTE NEUT (AUTO) 4.4 10^3/uL (1.7-8.2); BASOPHILS % (AUTO) 0.7 % (0-2); EOSINOPHILS % (AUTO) 5.3 % (0-6); HEMATOCRIT 41.5 % (37.9-51.0); HEMOGLOBIN 14.3 g/dL (13.5-17.0); LYMPHOCYTES % (AUTO) 27.4 % (13-45); MEAN CORPUSCULAR HEMOGLOBIN 29.8 pg (27.0-33.4); MEAN CORPUSCULAR HGB CONC 34.4 g/dL (32.0-36.0); MEAN CORPUSCULAR VOLUME 87 fl (80-97); MONOCYTES % (AUTO) 9.5 % (3-13); PLATELET COUNT 175 10^3/uL (150-450); RED CELL DISTRIBUTION WIDTH 14.6 % (11.5-14.0); SEGMENTED NEUTROPHILS % (AUTO) 57.1 % (42-78); TOTAL CELLS COUNTED % (AUTO) 100 %; WHITE BLOOD COUNT 7.8 10^3/uL (4.0-10.5)
[2019-08-24 08:12] LABS: ALBUMIN 3.9 g/dL (3.5-5.0); ALKALINE PHOSPHATASE 77 U/L (38-126); ANION GAP 7 (5-19); ASPARTATE AMINO TRANSFERASE 57 U/L (17-59); BILIRUBIN,DIRECT 0.1 mg/dL (0.0-0.4); BILIRUBIN,TOTAL 0.8 mg/dL (0.2-1.3); BLOOD UREA NITROGEN 12 mg/dL (7-20); CALCIUM 9.7 mg/dL (8.4-10.2); CARBON DIOXIDE 29 mmol/L (22-30); CHLORIDE 103 mmol/L (98-107); CREATINE KINASE 61 U/L (55-170); GLUCOSE 86 mg/dL (75-110); POTASSIUM 4.2 mmol/L (3.6-5.0); TOTAL PROTEIN 7.2 g/dL (6.3-8.2)
--- NOTE | 2019-08-24 08:12 | RADIOLOGY REPORT (SQ) ---
EXAM DESCRIPTION: CHEST SINGLE VIEW COMPLETED DATE/TIME: 08/24/2019 7:19 am REASON FOR STUDY: FLU like illness COMPARISON: 02/17/2018 EXAM PARAMETERS: NUMBER OF VIEWS: One view. TECHNIQUE: Single frontal radiographic view of the chest acquired. RADIATION DOSE: NA LIMITATIONS: None. FINDINGS: LUNGS AND PLEURA: No opacities, masses or pneumothorax. No pleural effusion. MEDIASTINUM AND HILAR STRUCTURES: No masses. Contour normal. HEART AND VASCULAR STRUCTURES: Heart normal in size. Normal vasculature. BONES: No acute findings. HARDWARE: None in the chest. OTHER: External artifact overlies the right upper lung and bilateral lateral chest [place]. IMPRESSION: 1. No significant interval changes since the prior examination dated 02/17/2018. No acu te findings. TECHNICAL DOCUMENTATION: JOB ID: [id number] [employer]- All Rights Reserved Reading location - IP/workstation name: [email or web address]
--- NOTE | 2019-08-24 08:14 | ER Document Report ---
Entered by ROYCE CABRERA SCRIBE 08/24/19 0705 Acting as scribe for:MADI TAMAYO MD ED General - General Chief Complaint: Arm Pain Stated Complaint: LEFT ARM PAIN Time Seen by Provider: 08/24/19 06:52 Mode of Arrival: Ambulatory Information source: Patient Notes: This 24-year-old male patient presents to the emergency department today with complaints of left upper extremity pain for the last x1.5-2 days. Patient admitted to nursing staff that he injects heroin in this extremity although now he retracts that statement. Patient seems to think that all these red scabbed over areas on his left upper extremity are from "digging out fiberglass". Sister at bedside states the patient has had a headache, cough, body aches, and vomiting for the last 2 days. TRAVEL OUTSIDE OF THE [place] IN LAST 30 DAYS: No - Related Data Allergies/Adverse Reactions: acetaminophen [From Tylenol] Allergy (Verified 08/28/18 15:50) Past Medical History - General Information source: Patient - Social History Smoking Status: Current Every Day Smoker Cigarette use (# per day): Yes Drug Abuse: Heroin, Prescription drugs Family History: Reviewed & Not Pertinent Patient has suicidal ideation: No Patient has homicidal ideation: No Pulmonary Medical History: Reports: Hx Asthma Skin Medical History: Reports Hx Eczema Psychiatric Medical History: Reports: Hx Anxiety, Hx Depression - Immunizations Immunizations up to date: Yes Hx Diphtheria, Pertussis, Tetanus Vaccination: Yes - last tetanus a few months ago Review of Systems - Review of Systems Constitutional: No symptoms reported EENT: No symptoms reported Cardiovascular: No symptoms reported Respiratory: See HPI, Cough Gastrointestinal: See HPI, Vomiting Genitourinary: No symptoms reported Male Genitourinary: No symptoms reported Musculoskeletal: See HPI, Muscle pain Skin: No symptoms reported Hematologic/Lymphatic: No symptoms reported Neurological/Psychological: See HPI, Headaches -: Yes All other systems reviewed and negative Physical Exam - Vital signs Vitals: Temp Pulse Resp BP Pulse Ox 97.3 F 93 20 113/77 99 08/24/19 02:44 08/24/19 02:44 08/24/19 02:44 08/24/19 02:44 08/24/19 02:44 - Notes Notes: Physical Exam: General: Alert, sleeping, wakes up during exam. HEENT: Normocephalic. Atraumatic. PERRL. Extraocular movements intact. Oropharynx clear. Left TM is erythematous and retracted, right TM is scarred. Conjunctiva are injected bilaterally. Dry mucous membranes. Neck: Supple. Non-tender. Respiratory: No respiratory distress. Clear and equal breath sounds bilaterally. Cardiovascular: Regular rate and rhythm. Abdominal: Normal Inspection. Non-tender. No distension. Normal Bowel Sounds. Back: No gross abnormalities. Extremities: Moves all four extremities. Upper extremities: See skin exam. There is a scab over the left thenar and first metacarpal head which is very tender with palpation. Lower extremities: Normal inspection. No edema. Normal ROM. Neurological: Normal cognition. AAOx4. Normal speech. Psychological: Normal affect. Normal Mood. Skin: There are too numerous to count areas on left upper extremity that are scabbed over, many over vessels. Course - Re-evaluation Re-evalutation: 08/24/19 09:49 Patient has had about 1/2 L of fluid so far. He is sitting up and using a cell phone. States he does feel better. He is much more awake now. He states his headache is now mostly in the back of his head not so much in the front. He does have tender posterior cervical muscles and occipital muscles. 08/24/19 10:50 Urine drug screen is positive for opiates, benzos, and amphetamines. 08/24/19 12:57 The small scabs all over his left upper extremity are very suspicious for skin pops from shooting meth subcutaneously. At this time the patient is sound asleep, pupils are little small, he is difficult to arouse, his respirations are not depressed, will give some Narcan. There is suspicion that he may have given himself medication when he went to the restroom most recently. Alternatively, he could be sleeping hard after having been on a meth binge. 08/24/19 13:09 Patient was given Narcan 0.4 mg IV, within a few minutes he was in opiate withdrawal, jerking rolling about and very uncomfortable. At that point he stated that he was going through withdrawal. He still denies shooting up after he got to the emergency room, but I believe he probably did. I asked him if he was interested in getting help to stop using drugs, and he responded that he did not want to stop using. 08/24/19 14:24 Initially I was planning to anesthetize his left thenar eminence area and lift off the scab to see if there was a foreign body or any infection. However after the severity of his withdrawal symptoms and his inability to remain still, I do not think that is safe and probably not going to be beneficial anyway. A plan to put him on antibiotics for skin bacterial infections, let him soak the hand in warm water repeatedly to soften up the area and if there is a foreign body perhaps it will work its way to the surface. He is going to be given resources for his substance abuse disorder if he decides he does want to get help. 08/24/19 15:35 Community paramedics were contacted so they can reach out to the patient in a few days to see if he may be interested in getting help with his substance abuse. The patient was given another Narcan 0.4 mg IV when it was difficult to wake him up. The family was here to take him home. He did not have any respiratory depression. The Narcan brought him out of his sleep state, and he began to feel quite uncomfortable and that this caused the family to become upset at the bus. - Vital Signs Vital signs: Temp Pulse Resp BP Pulse Ox 98.1 F 67 16 101/51 L 94 08/24/19 15:10 08/24/19 15:10 08/24/19 15:10 08/24/19 15:10 08/24/19 15:10 - Laboratory Result Diagrams: 08/24/19 07:39 08/24/19 07:39 Laboratory results interpreted by me: 08/24/19 08/24/19 07:39 09:15 RDW 14.6 H Urine Urobilinogen 4.0 H Ur Leukocyte Esterase TRACE H Discharge - Discharge Clinical Impression: Opiate withdrawal, Methamphetamine abuse, Skin sore Condition: Stable Disposition: HOME, SELF-CARE Additional Instructions: Your examination today shows multiple sores primarily on your left upper extremity that suggest subcutaneous injections of methamphetamine. This does not mean that you have been doing those injections, but the areas are consistent with that habit. The sore on your left palm near your thumb, is not red but it is tender. It may be an infection at this time. If there is a foreign body just under the skin, treating with antibiotics and doing warm soaks will calm it down and may allow the foreign body to work its way out to the skin surface. I do not feel it is safe to attempt to incise that area today, but I will place you on antibiotics and recommend that you soak the hand in warm water several times a day for the next few days. You should keep your hand elevated above your heart is much as possible. You will be given a list of local resources if you do decide to stop using drugs. Follow-up with a local medical doctor or return to the emergency room if your hand does not improve. RETURN TO THE EMERGENCY ROOM IF ANY NEW OR WORSENING SYMPTOMS. Prescriptions: Sulfamethoxazole/Trimethoprim [Bactrim Ds Tablet] 2 tab PO BID #40 tablet Scribe Attestation: 08/24/19 14:26 I personally performed the services described in the documentation, reviewed and edited the documentation which was dictated to the scribe in my presence, and it accurately records my words and actions. I personally performed the services described in the documentation, reviewed and edited the documentation which was dictated to the scribe in my presence, and it accurately records my words and actions.
[2019-08-24 08:20] LABS: A TYPE INFLUENZA AG NEGATIVE (NEGATIVE); B INFLUENZA AG NEGATIVE (NEGATIVE)
[2019-08-24] MEDS ORDERED: DEXTROSE 5%-LACTATED RINGERS 1,000 ML IV ONE (08:31)
[2019-08-24 09:39] LABS: APPEARANCE,URINE SLIGHTLY-CLOUDY; BILIRUBIN,URINE NEGATIVE (NEGATIVE); COLOR,URINE YELLOW; GLUCOSE, URINE NEGATIVE (NEGATIVE); KETONES,URINE NEGATIVE (NEGATIVE); LEUKOCYTE ESTERASE,URINE TRACE (NEGATIVE); NITRITE,URINE NEGATIVE (NEGATIVE); PROTEIN,URINE NEGATIVE (NEGATIVE); URINE SPECIFIC GRAVITY 1.024
[2019-08-24] MEDS ORDERED: PROCHLORPERAZINE EDISYLATE INJ 10 MG/2 ML VIAL IV ONE (09:48)
[2019-08-24] MEDS ORDERED: DIPHENHYDRAMINE HCL 50 MG/ML VIAL IV ONE (09:48)
[2019-08-24] MEDS ORDERED: LIDOCAINE 1% INJ-PF (10 MG/ML) 30 ML SDV INJ ONE (09:49)
[2019-08-24 10:16] LABS: URINE BARBITURATES SCREEN NEGATIVE; URINE COCAINE SCREEN NEGATIVE; URINE MARIJUANA (THC) SCREEN NEGATIVE; URINE METHADONE SCREEN NEGATIVE; URINE PHENCYCLIDINE SCREEN NEGATIVE
[2019-08-24 10:17] LABS: URINE BENZODIAZEPINES SCREEN UNCONFIRMED POSITIVE
[2019-08-24] MEDS ORDERED: NALOXONE HCL INJ/PF 0.4 MG/1 ML SDV IV ONE ×2 (12:56→15:06)
[2019-08-24 15:15] VITALS: BP 101/51
== END 2019-08-24 15:10 | disposition home or self-care (01) ==
LOC: ER 02:39
DX: F11.23 Opioid dependence with withdrawal (principal); F15.10 Other stimulant abuse, uncomplicated; L98.499 Non-pressure chronic ulcer of skin of other sites with unspecified severity; L08.9 Local infection of the skin and subcutaneous tissue, unspecified; B96.89 Other specified bacterial agents as the cause of diseases classified elsewhere; R23.4 Changes in skin texture; M79.602 Pain in left arm; R05 Cough; R11.10 Vomiting, unspecified; R51 Headache; M79.10 Myalgia, unspecified site; F17.210 Nicotine dependence, cigarettes, uncomplicated; J45.909 Unspecified asthma, uncomplicated; Z88.8 Allergy status to other drugs, medicaments and biological substances
CPT/HCPCS: 96376; 99283; 96361; 96374; 96375; 36415; 87040; 82550; 83735; 85025; 80053; 81001; 84484; 80307; 83605; 87804; 71045; J1200; J3490; J2310; J0780; J7121; J7030

== ENCOUNTER 2019-10-26 19:43 | Emergency (ER) | payer SELFPAY ==
[2019-10-26] MEDS ORDERED: ONDANSETRON 4 MG TAB.RAPDIS PO ONE (20:51)
--- NOTE | 2019-10-26 20:54 | ER Document Report ---
ED Medical Screen (RME) - General Stated Complaint: CHEST PAIN/DIZZY Time Seen by Provider: 10/26/19 20:47 Notes: HPI: 24-year-old male with history of heroin abuse presenting to the emergency department complaining of thoughts of self-harm that have been increasing over the last several days. States that when he was much younger he did have cutting behaviors as a way to harm himself. Patient does not have a definitive plan. States that he does not feel well with nausea and vomiting and chills. No abdominal pain. States he stopped by a fire department last night to ask for help and they told him he would be fine. Patient last used heroin this morning. I have greeted and performed a rapid initial assessment of this patient. A comprehensive ED assessment and evaluation of the patient, analysis of test results and completion of the medical decision making process will be conducted by additional ED providers PHYSICAL EXAMINATION: GENERAL: Well-appearing, well-nourished and in mild acute distress. Patient is sleepy HEAD: Atraumatic, normocephalic. EYES: sclera anicteric, conjunctiva are normal. ENT: Moist mucous membranes. NECK: Normal range of motion LUNGS: Normal work of breathing, clear to auscultation HEART: 2+ radial pulses bilaterally, mild tachycardia ABD: limited by positioning for exam in triage. EXTREMITIES: no pitting or edema. No cyanosis. NEUROLOGICAL: No focal neurological deficits. Moves all extremities spontaneously and on command. PSYCH: Patient is tearful SKIN: Warm, Dry, normal turgor, multiple injection sites on the forearms are noted TRAVEL OUTSIDE OF THE [place] IN LAST 30 DAYS: No - Related Data Allergies/Adverse Reactions: acetaminophen [From Tylenol] Allergy (Verified 10/26/19 20:49) Past Medical History Pulmonary Medical History: Reports: Hx Asthma Renal/ Medical History: Denies: Hx Peritoneal Dialysis Skin Medical History: Reports Hx Eczema Psychiatric Medical History: Reports: Hx Anxiety, Hx Depression - Immunizations Immunizations up to date: Yes Hx Diphtheria, Pertussis, Tetanus Vaccination: Yes - last tetanus a few months ago Physical Exam - Vital signs Vitals: Temp Pulse Resp BP Pulse Ox 98.1 F 102 H 20 132/81 H 96 10/26/19 20:36 10/26/19 20:36 10/26/19 20:36 10/26/19 20:36 10/26/19 20:36 Course - Vital Signs Vital signs: Temp Pulse Resp BP Pulse Ox 98.1 F 102 H 20 132/81 H 96 10/26/19 20:36 10/26/19 20:36 10/26/19 20:36 10/26/19 20:36 10/26/19 20:36
[2019-10-26 23:51] LABS: ABSOLUTE BASOPHILS # (AUTO) 0.1 10^3/uL (0.0-0.2); ABSOLUTE EOSINOPHILS # (AUTO) 0.2 10^3/uL (0.0-0.6); ABSOLUTE LYMPHOCYTES (AUTO) 2.6 10^3/uL (0.5-4.7); ABSOLUTE MONOCYTES (AUTO) 0.7 10^3/uL (0.1-1.4); ABSOLUTE NEUT (AUTO) 5.5 10^3/uL (1.7-8.2); BASOPHILS % (AUTO) 0.9 % (0-2); EOSINOPHILS % (AUTO) 2.2 % (0-6); HEMATOCRIT 42.6 % (37.9-51.0); HEMOGLOBIN 14.9 g/dL (13.5-17.0); LYMPHOCYTES % (AUTO) 28.5 % (13-45); MEAN CORPUSCULAR HEMOGLOBIN 31.2 pg (27.0-33.4); MEAN CORPUSCULAR VOLUME 89 fl (80-97); MONOCYTES % (AUTO) 8.1 % (3-13); PLATELET COUNT 184 10^3/uL (150-450); RED BLOOD COUNT 4.78 10^6/uL (4.35-5.55); RED CELL DISTRIBUTION WIDTH 14.7 % (11.5-14.0); SEGMENTED NEUTROPHILS % (AUTO) 60.3 % (42-78); TOTAL CELLS COUNTED % (AUTO) 100 %; WHITE BLOOD COUNT 9.1 10^3/uL (4.0-10.5)
[2019-10-27 00:03] LABS: APPEARANCE,URINE SLIGHTLY-CLOUDY; BILIRUBIN,URINE NEGATIVE (NEGATIVE); COLOR,URINE AMBER; GLUCOSE, URINE NEGATIVE (NEGATIVE); KETONES,URINE TRACE mg/dL (NEGATIVE); LEUKOCYTE ESTERASE,URINE NEGATIVE (NEGATIVE); NITRITE,URINE NEGATIVE (NEGATIVE); PROTEIN,URINE 30 mg/dL (NEGATIVE); URINE SPECIFIC GRAVITY 1.033
[2019-10-27 00:09] LABS: ALBUMIN 4.2 g/dL (3.5-5.0); ALKALINE PHOSPHATASE 77 U/L (38-126); ANION GAP 9 (5-19); ASPARTATE AMINO TRANSFERASE 30 U/L (17-59); BILIRUBIN,TOTAL 0.9 mg/dL (0.2-1.3); BLOOD UREA NITROGEN 30 mg/dL (7-20); CALCIUM 9.3 mg/dL (8.4-10.2); CARBON DIOXIDE 27 mmol/L (22-30); CHLORIDE 103 mmol/L (98-107); GLUCOSE 89 mg/dL (75-110); POTASSIUM 4.2 mmol/L (3.6-5.0); TOTAL PROTEIN 7.1 g/dL (6.3-8.2)
[2019-10-27 00:10] LABS: ACETAMINOPHEN < 10 ug/mL (10-30); ALCOHOL < 10 mg/dL (NONE DETECTED); SALICYLATE < 1.0 mg/dL (2.0-20.0)
--- NOTE | 2019-10-27 00:13 | ER Document Report ---
ED General - General Chief Complaint: Psych Problem Stated Complaint: CHEST PAIN/DIZZY Time Seen by Provider: 10/26/19 20:47 Mode of Arrival: Ambulatory Information source: Patient TRAVEL OUTSIDE OF THE [place] IN LAST 30 DAYS: No - HPI Onset: Other - over the last several days to weeks Onset/Duration: Gradual Quality of pain: No pain Severity: Moderate Pain Level: Denies Associated symptoms: Other - anxiety, paranoia Exacerbated by: Other - drug use Relieved by: Denies Similar symptoms previously: Yes Notes: 24 year old male with a history of Polysubstance Abuse, Asthma, Anxiety, Depression here because he wants help with his substance abuse problem (he used heroin yesterday and meth several days ago) and because he feels unsafe. The patient is currently homeless and he seems to bounce from friend's house to friend's house. The patient denies SI or HI at this time. - Related Data Allergies/Adverse Reactions: acetaminophen [From Tylenol] Allergy (Verified 10/26/19 20:49) Past Medical History - General Information source: Patient - Social History Smoking Status: Current Every Day Smoker Frequency of alcohol use: None Drug Abuse: Heroin, Marijuana, Methamphetamine, Prescription drugs, Other Lives with: Homeless Family History: Reviewed & Not Pertinent Patient has suicidal ideation: Yes Patient has homicidal ideation: No Pulmonary Medical History: Reports: Hx Asthma Renal/ Medical History: Denies: Hx Peritoneal Dialysis Skin Medical History: Reports Hx Eczema Psychiatric Medical History: Reports: Hx Anxiety, Hx Depression - Immunizations Immunizations up to date: Yes Hx Diphtheria, Pertussis, Tetanus Vaccination: Yes - last tetanus a few months ago Review of Systems - Review of Systems Constitutional: No symptoms reported EENT: No symptoms reported Cardiovascular: No symptoms reported Respiratory: No symptoms reported Gastrointestinal: No symptoms reported Genitourinary: No symptoms reported Male Genitourinary: No symptoms reported Musculoskeletal: No symptoms reported Skin: No symptoms reported Hematologic/Lymphatic: No symptoms reported Neurological/Psychological: Anxiety, Other - homeless, drug user -: Yes All other systems reviewed and negative Physical Exam - Vital signs Vitals: Temp Pulse Resp BP Pulse Ox 98.1 F 102 H 20 132/81 H 96 10/26/19 20:36 10/26/19 20:36 10/26/19 20:36 10/26/19 20:36 10/26/19 20:36 - Notes Notes: GENERAL: Poorly groomed, intoxicated, well-nourished and in no acute distress. HEAD: Atraumatic, normocephalic. EYES: Pupils equal round and reactive to light, extraocular movements intact, sclera anicteric, conjunctiva are normal. ENT: Nares patent, oropharynx clear without exudates. Moist mucous membranes. NECK: Normal range of motion, supple without lymphadenopathy or JVD. LUNGS: Breath sounds clear to auscultation bilaterally and equal. No wheezes rales or rhonchi. HEART: Regular rate and rhythm without murmurs, rubs or gallops. ABDOMEN: Soft, nontender, normoactive bowel sounds. No guarding, no rebound. No masses appreciated. EXTREMITIES: Normal range of motion, no pitting or edema. No clubbing or cyanosis. NEUROLOGICAL: Cranial nerves II through XII grossly intact. Normal speech, normal gait. PSYCH: Normal mood, normal affect. Patient denies SI and HI SKIN: Warm, Dry, normal turgor, no rashes or lesions noted. Course - Re-evaluation Re-evalutation: 10/27/19 06:40 The patient used Heroin and he was noticeably intoxicated in the ER. The patient was allowed to sleep/rest for many hours in the ER until he was sober enough to be discharged. Patient was told to follow up with a PCP and Outpatient Mental Health. - Vital Signs Vital signs: Temp Pulse Resp BP Pulse Ox 98.1 F 102 H 20 132/81 H 96 10/26/19 20:36 10/26/19 20:36 10/26/19 20:36 10/26/19 20:36 10/26/19 20:36 - Laboratory Result Diagrams: 10/26/19 23:30 10/26/19 23:30 Laboratory results interpreted by me: 10/26/19 10/26/19 10/26/19 23:12 23:30 23:30 RDW 14.7 H BUN 30 H Urine Protein 30 H Urine Ketones TRACE H Urine Urobilinogen 2.0 H Salicylates < 1.0 L Acetaminophen < 10 L Discharge - Discharge Clinical Impression: Heroin abuse Condition: Stable Disposition: HOME, SELF-CARE Instructions: Drug Effects ([facility]), Drug Toxicity ([facility]) Additional Instructions: Stop using street drugs. Follow up with a primary care doctor and with outpatient mental health. Go to [facility] if you would like help with your drug problem.
[2019-10-27 00:16] LABS: URINE BARBITURATES SCREEN NEGATIVE; URINE COCAINE SCREEN NEGATIVE; URINE METHADONE SCREEN NEGATIVE; URINE PHENCYCLIDINE SCREEN NEGATIVE
[2019-10-27 00:26] LABS: URINE BENZODIAZEPINES SCREEN UNCONFIRMED POSITIVE; URINE MARIJUANA (THC) SCREEN UNCONFIRMED POSITIVE
[2019-10-27 07:04] VITALS: BP 115/53
--- NOTE | 2019-10-27 19:37 | EKG REPORT ---
SEVERITY:- NORMAL ECG - SINUS RHYTHM : Confirmed by: Carol Escamilla MD 27-Oct-2019 19:36:47
== END 2019-10-27 07:13 | disposition home or self-care (01) ==
LOC: ER 19:43
DX: F11.10 Opioid abuse, uncomplicated (principal); F19.10 Other psychoactive substance abuse, uncomplicated; R07.9 Chest pain, unspecified; R42 Dizziness and giddiness; F41.9 Anxiety disorder, unspecified; F32.9 Major depressive disorder, single episode, unspecified; J45.909 Unspecified asthma, uncomplicated; Z59.0 Homelessness; Z79.899 Other long term (current) drug therapy; F17.200 Nicotine dependence, unspecified, uncomplicated
CPT/HCPCS: 36415; 80053; 80307; 81001; 85025; 93005; 93010; 99284